=== PATIENT | female | born 1995 | race Caucasian/White ===

== ENCOUNTER 2018-12-02 17:06 | Emergency (ER) | payer OTHER ==
[2018-12-02] MEDS ORDERED: AMPH20TA18 PO (17:15)
--- NOTE | 2018-12-02 17:17 | ER Report ---
History and Physical Time Seen By MD: 17:15 Hx. of Stated Complaint: patient has a fishing fly caught in left side of face HPI/ROS CHIEF COMPLAINT: fish hook in left cheek HISTORY OF PRESENT ILLNESS: This is a 23 year old female. She has a small fishing fly in the left cheek. Painful. Tried to get it out, but unable. Allergies: Coded Allergies: amoxicillin (Verified Allergy, Severe, 12/02/18) Home Meds Active Scripts Cefdinir 300 Mg Cap (OMNICEF 300 MG CAP (OR EQUIV)) 300 Mg Cap, 300 MG PO BID, #14 CAP 0 Refills Prov:STACY MCLEAN MD 12/02/18 Reported Medications Amphet Asp/Amphet/D-Amphet (ADDERALL 20 MG TABLET) 20 Mg Tablet, 20 MG PO 12/02/18 Reviewed Nurses Notes: Yes Constitutional Vital Sign - Last 24 Hours 12/02/18 12/02/18 12/02/18 12/02/18 17:07 17:09 17:30 17:36 Temp 98.4 Pulse 79 76 Resp 16 B/P (MAP) 105/76 (86) 105/76 104/75 (85) Pulse Ox 96 99 O2 Delivery Room Air 12/02/18 18:00 Pulse 71 B/P (MAP) 102/68 (79) Pulse Ox 99 Physical Exam General: Alert, no distress. Skin: Small fishing fly in left cheek a few cm from the nose. Medical Decision Making ED Course/Re-evaluation ED Course Tetanus booster given. Discussed options with the patient. Decided to numb the a jessica with lidocaine and then advance, cut the emma, and reverse the hook out. This would require trimming the material off the fly and a risk of foreign material in the wound, but not significantly more that what we are already having the risk for. She agreed with this approach. Procedure: Fishing fly in left cheek, removal. Verbal consent from patient after discussing repair options, risks and benefits. Wound cleaned extensively with Hibiclens and saline during the procedure. Anesthesia: Local 1% lidocaine and 0.5% bupivacaine without epinephrine. Location: left cheek, near the nose. Trimmed the material off the fly hook, advanced and cut the emma, then reversed out. Cleaned again as noted. The hook removal and wound cleaning was simple and performed by myself. Wound care instructions discussed. Tetanus booster given. Cefdinir 300mg twice a day for 7 days. Decision to Disposition Date: Dec 02, 2018 Decision to Disposition Time: 17:51 Depart Departure Latest Vital Signs Vital Signs Date Time Temp Pulse Resp B/P (MAP) Pulse Ox O2 Delivery O2 Flow Rate FiO2 12/02/18 18:00 71 102/68 (79) 99 12/02/18 17:09 98.4 16 Room Air Impression: Primary Impression: Fish hook injury of cheek Condition: Improved Disposition: HOME OR SELF-CARE New Scripts Cefdinir 300 Mg Cap (OMNICEF 300 MG CAP (OR EQUIV)) 300 Mg Cap 300 MG PO BID, #14 CAP 0 Refills Prov: STACY MCLEAN MD 12/02/18 Patient Instructions: Soft Tissue Foreign Body (ED) Additional Instructions: Wash the wound on the face twice a day with soap and water. Take the antibiotic Cefdinir 300mg twice a day for 7 days. A little bit of swelling and redness will be normal for a couple of days. See your doctor right away if having worsening pain, redness/swelling, especially if very warm to touch, or if having purulent drainage. Problem Qualifiers Primary Impression: Fish hook injury of cheek Encounter type: initial encounter Qualified Codes: S09.93XA - Unspecified injury of face, initial encounter STACY MCLEAN MD Dec 02, 2018 17:17
[2018-12-02] MEDS ORDERED: DIPHTH/TETANUS/ACEL. PERTUSSIS IM ONLY ONE (17:55)
[2018-12-02] MEDS ORDERED: CEF300 PO (17:59)
[2018-12-02 18:00] VITALS: BP 102/68
== END 2018-12-02 18:12 | disposition home or self-care (01) ==
LOC: ER 17:15
DX: S01.442A Puncture wound with foreign body of left cheek and temporomandibular area, initial encounter (principal)
CPT/HCPCS: 90471; 90715; 99283